=== PATIENT | male | born 1975 | race Caucasian/White ===

== ENCOUNTER → 2019-04-04 | Outpatient (CLI) | payer BC ==
--- NOTE | 2019-04-04 15:13 | US ---
EXAMINATION TYPE: US kidneys/renal and bladder DATE OF EXAM: 04/04/2019 COMPARISON: NONE CLINICAL HISTORY: N23 Renal Colic. Right side pain, No hx of renal stones EXAM MEASUREMENTS: Right Kidney: 11.6 x 7.0 x 7.6 cm Left Kidney: 12.9 x 5.9 x 6.2 cm Right Kidney: Mild hydronephrosis visualized. No prominent stones or masses. Left Kidney: No hydronephrosis or masses seen Bladder: Mildly distended Right Jets seen No nephrolithiasis is seen. No masses are identified. The urinary bladder is anechoic. Bilateral u reteral jets are seen. IMPRESSION: Mild right-sided hydronephrosis. No obstructing calculus is seen sonographically.
== END | disposition home or self-care (01) ==
LOC: RADUSWWP 14:19
PROVIDERS: ATTEND Family Medicine
DX: N23 Unspecified renal colic (principal); N13.30 Unspecified hydronephrosis
CPT/HCPCS: 76770

== ENCOUNTER → 2019-04-13 | Outpatient (CLI) | payer BC ==
--- NOTE | 2019-04-13 09:53 | US ---
EXAMINATION TYPE: US kidneys/renal and bladder DATE OF EXAM: 04/13/2019 COMPARISON: US 04/04/19 CLINICAL HISTORY: N13.30 HYDRONEPHROSIS. Pt feels that a stone has passes. Recheck hydronephrosis. EXAM MEASUREMENTS: Right Kidney: 12.3 x 6.6 x 6.5 cm Left Kidney: 12.7 x 6.4 x 6.0 cm Post Void Residual Volume: 11.2 mL Right Kidney: No hydronephrosis or masses seen Left Kidney: No hydronephrosis or masses seen Bladder: wnl Bilateral Jets seen: Yes Normal Post Void Residual: Yes There is no evidence for hydronephrosis at this point in time. No nephrolithiasis is seen. No laureano s are identified. The urinary bladder is anechoic. Bilateral ureteral jets are seen. Kidney shows n ormal cortical medullary differentiation. IMPRESSION: Renal sizes as described. Improvement in right-sided hydronephrosis compared to prior exam.
== END | disposition home or self-care (01) ==
LOC: RADUSMAIN 07:54
PROVIDERS: ATTEND Family Medicine
DX: N13.30 Unspecified hydronephrosis (principal)
CPT/HCPCS: 76770

== ENCOUNTER 2020-01-22 10:31 | Emergency (ER) | payer BC ==
[2020-01-22 10:37] VITALS: PULSE 86; RESP 16; TEMP 98.3
[2020-01-22] MEDS ORDERED: SODIUM CHLORIDE 0.9% 1,000 ML IV STA (10:49)
[2020-01-22] MEDS ORDERED: HYDROmorphone 0.5 MG/0.5 ML SYRINGE IVP STA (10:49)
--- NOTE | 2020-01-22 10:55 | ED ---
General Adult HPI - General Chief complaint: Abdominal Pain Stated complaint: ABD PAIN Time Seen by Provider: 01/22/20 10:35 Source: patient, EMS, RN notes reviewed, old records reviewed Mode of arrival: EMS Limitations: no limitations - History of Present Illness Initial comments: 44-year-old male presenting for evaluation of left-sided abdominal pain. Pain began 2 days ago, was intermittent in nature similar to previous episodes of renal colic with known history of kidney stones. He states that this morning the pain became more severe and constant. He states he had a bowel movement this morning. He had several episodes of vomiting secondary to pain. Denies upper abdominal pain. No chest pain. No fever. No cough or dyspnea. History of hypertension. - Related Data Previous Rx's Medication Instructions Recorded Acetaminophen-Codeine 300-30mg 1 tab PO Q6H PRN #20 tablet 07/16/14 [Tylenol #3] Ibuprofen [Motrin] 600 mg PO Q8HR PRN #30 tab 07/16/14 Penicillin V Potassium [Pen Vee K] 500 mg PO QID #40 tab 07/16/14 HYDROcodone/APAP 5-325MG [Braddock 1 tab PO Q6HR PRN #12 tab 01/22/20 5-325] Tamsulosin [Flomax] 0.4 mg PO DAILY #30 cap 01/22/20 Allergies Allergy/AdvReac Type Severity Reaction Status Date / Time No Known Allergies Allergy Verified 07/16/14 12:34 Review of Systems ROS Statement: Those systems with pertinent positive or pertinent negative responses have been documented in the HPI. ROS Other: All systems not noted in ROS Statement are negative. Past Medical History Past Medical History: No Reported History History of Any Multi-Drug Resistant Organisms: None Reported Past Surgical History: No Surgical Hx Reported Past Anesthesia/Blood Transfusion Reactions: No Reported Reaction Past Psychological History: No Psychological Hx Reported Smoking Status: Current every day smoker Past Alcohol Use History: None Reported, Rare Past Drug Use History: None Reported General Exam Limitations: no limitations General appearance: alert, in no apparent distress Head exam: Present: atraumatic, normocephalic Eye exam: Present: normal appearance, PERRL ENT exam: Present: normal exam Neck exam: Present: normal inspection. Absent: tenderness, meningismus Respiratory exam: Present: normal lung sounds bilaterally. Absent: respiratory distress, wheezes Cardiovascular Exam: Present: regular rate, normal rhythm GI/Abdominal exam: Present: soft, distended, tenderness Extremities exam: Present: normal inspection, normal capillary refill. Absent: pedal edema Neurological exam: Present: alert, oriented X3, CN II-XII intact. Absent: motor sensory deficit Psychiatric exam: Present: normal affect, normal mood Skin exam: Present: warm, dry, intact. Absent: cyanosis, diaphoretic Course Vital Signs 01/22/20 10:32 Temperature 98.3 F Pulse Rate 86 Respiratory 16 Rate Blood Pressure 158/78 O2 Sat by Pulse 99 Oximetry Medical Decision Making - Medical Decision Making 44 -year-old male presenting with left flank pain and left lower abdominal pain. Patient has history of renal colic. Workup initiated emergency partner, patient has mild leukocytosis 11.0, lactic acid 2.5. Stable hemoglobin. He has creatinine 1.42 with a baseline of 1.2. He has a 4 mm stone with left-sided hydrocele and some perinephric fat stranding. He does have an enlarged prostate and some enlarged lymph nodes as well as hepatomegaly all incidentally found on CT. He will require outpatient follow-up particularly on the enlarged prostate and lymph nodes. Urinalysis showed 4 rbc's and 4+ glucose. I discussed case with Dr. Nunes who is able to evaluate this patient on an outpatient basis if his pain is controlled. After second dose of Dilaudid the patient is feeling better. He is given a urine strainer. He will be prescribed pain medication, Flomax. He will have close outpatient follow-up with urology and will return with worsening or changing symptoms. - Lab Data Result diagrams: 01/22/20 10:55 01/22/20 10:55 Lab Results 01/22/20 01/22/20 01/22/20 Range/Units 10:55 10:55 10:55 WBC 11.0 H (3.8-10.6) k/uL RBC 4.91 (4.30-5.90) m/uL Hgb 13.8 (13.0-17.5) gm/dL Hct 42.8 (39.0-53.0) % MCV 87.1 (80.0-100.0) fL MCH 28.1 (25.0-35.0) pg MCHC 32.3 (31.0-37.0) g/dL RDW 13.9 (11.5-15.5) % Plt Count 271 (150-450) k/uL Neutrophils % 79 % Lymphocytes % 13 % Monocytes % 4 % Eosinophils % 1 % Basophils % 1 % Neutrophils # 8.7 H (1.3-7.7) k/uL Lymphocytes # 1.5 (1.0-4.8) k/uL Monocytes # 0.5 (0-1.0) k/uL Eosinophils # 0.1 (0-0.7) k/uL Basophils # 0.1 (0-0.2) k/uL PT 10.0 (9.0-12.0) sec INR 1.0 (<1.2) APTT 23.4 (22.0-30.0) sec Sodium 136 L (137-145) mmol/L Potassium 4.9 (3.5-5.1) mmol/L Chloride 105 (98-107) mmol/L Carbon Dioxide 19 L (22-30) mmol/L Anion Gap 12 mmol/L BUN 17 (9-20) mg/dL Creatinine 1.42 H (0.66-1.25) mg/dL Est GFR (CKD-EPI)AfAm 69 (>60 ml/min/1.73 sqM) Est GFR (CKD-EPI)NonAf 60 (>60 ml/min/1.73 sqM) Glucose 189 H (74-99) mg/dL Plasma Lactic Acid Cleve (0.7-2.0) mmol/L Calcium 9.1 (8.4-10.2) mg/dL Total Bilirubin 0.3 (0.2-1.3) mg/dL AST 35 (17-59) U/L ALT 58 H (4-49) U/L Alkaline Phosphatase 87 (38-126) U/L Total Protein 7.4 (6.3-8.2) g/dL Albumin 4.2 (3.5-5.0) g/dL Amylase 64 (30-110) U/L Lipase 169 (23-300) U/L Urine Color Urine Appearance (Clear) Urine pH (5.0-8.0) Ur Specific [place] (1.001-1.035) Urine Protein (Negative) Urine Glucose (UA) (Negative) Urine Ketones (Negative) Urine Blood (Negative) Urine Nitrite (Negative) Urine Bilirubin (Negative) Urine Urobilinogen (<2.0) mg/dL Ur Leukocyte Esterase (Negative) Urine RBC (0-5) /hpf Urine WBC (0-5) /hpf Urine Mucus (None) /hpf Blood Type Blood Type Confirm Blood Type Recheck Bld Type Recheck Status Antibody Screen Spec Expiration Date 01/22/20 01/22/20 01/22/20 Range/Units 11:07 11:12 11:12 WBC (3.8-10.6) k/uL RBC (4.30-5.90) m/uL Hgb (13.0-17.5) gm/dL Hct (39.0-53.0) % MCV (80.0-100.0) fL MCH (25.0-35.0) pg MCHC (31.0-37.0) g/dL RDW (11.5-15.5) % Plt Count (150-450) k/uL Neutrophils % % Lymphocytes % % Monocytes % % Eosinophils % % Basophils % % Neutrophils # (1.3-7.7) k/uL Lymphocytes # (1.0-4.8) k/uL Monocytes # (0-1.0) k/uL Eosinophils # (0-0.7) k/uL Basophils # (0-0.2) k/uL PT (9.0-12.0) sec INR (<1.2) APTT (22.0-30.0) sec Sodium (137-145) mmol/L Potassium (3.5-5.1) mmol/L Chloride (98-107) mmol/L Carbon Dioxide (22-30) mmol/L Anion Gap mmol/L BUN (9-20) mg/dL Creatinine (0.66-1.25) mg/dL Est GFR (CKD-EPI)AfAm (>60 ml/min/1.73 sqM) Est GFR (CKD-EPI)NonAf (>60 ml/min/1.73 sqM) Glucose (74-99) mg/dL Plasma Lactic Acid Cleve 2.5 H* (0.7-2.0) mmol/L Calcium (8.4-10.2) mg/dL Total Bilirubin (0.2-1.3) mg/dL AST (17-59) U/L ALT (4-49) U/L Alkaline Phosphatase (38-126) U/L Total Protein (6.3-8.2) g/dL Albumin (3.5-5.0) g/dL Amylase (30-110) U/L Lipase (23-300) U/L Urine Color Urine Appearance (Clear) Urine pH (5.0-8.0) Ur Specific [place] (1.001-1.035) Urine Protein (Negative) Urine Glucose (UA) (Negative) Urine Ketones (Negative) Urine Blood (Negative) Urine Nitrite (Negative) Urine Bilirubin (Negative) Urine Urobilinogen (<2.0) mg/dL Ur Leukocyte Esterase (Negative) Urine RBC (0-5) /hpf Urine WBC (0-5) /hpf Urine Mucus (None) /hpf Blood Type B Positive Blood Type Confirm B Positive Blood Type Recheck No Previous Record Bld Type Recheck Status CABO Indicated Antibody Screen NEGATIVE Spec Expiration Date 01/25/2020 - 231101/22/20 Range/Units 12:21 WBC (3.8-10.6) k/uL RBC (4.30-5.90) m/uL Hgb (13.0-17.5) gm/dL Hct (39.0-53.0) % MCV (80.0-100.0) fL MCH (25.0-35.0) pg MCHC (31.0-37.0) g/dL RDW (11.5-15.5) % Plt Count (150-450) k/uL Neutrophils % % Lymphocytes % % Monocytes % % Eosinophils % % Basophils % % Neutrophils # (1.3-7.7) k/uL Lymphocytes # (1.0-4.8) k/uL Monocytes # (0-1.0) k/uL Eosinophils # (0-0.7) k/uL Basophils # (0-0.2) k/uL PT (9.0-12.0) sec INR (<1.2) APTT (22.0-30.0) sec Sodium (137-145) mmol/L Potassium (3.5-5.1) mmol/L Chloride (98-107) mmol/L Carbon Dioxide (22-30) mmol/L Anion Gap mmol/L BUN (9-20) mg/dL Creatinine (0.66-1.25) mg/dL Est GFR (CKD-EPI)AfAm (>60 ml/min/1.73 sqM) Est GFR (CKD-EPI)NonAf (>60 ml/min/1.73 sqM) Glucose (74-99) mg/dL Plasma Lactic Acid Cleve (0.7-2.0) mmol/L Calcium (8.4-10.2) mg/dL Total Bilirubin (0.2-1.3) mg/dL AST (17-59) U/L ALT (4-49) U/L Alkaline Phosphatase (38-126) U/L Total Protein (6.3-8.2) g/dL Albumin (3.5-5.0) g/dL Amylase (30-110) U/L Lipase (23-300) U/L Urine Color Yellow Urine Appearance Clear (Clear) Urine pH 5.5 (5.0-8.0) Ur Specific [place] 1.029 (1.001-1.035) Urine Protein 1+ H (Negative) Urine Glucose (UA) 4+ H (Negative) Urine Ketones Negative (Negative) Urine Blood Small H (Negative) Urine Nitrite Negative (Negative) Urine Bilirubin Negative (Negative) Urine Urobilinogen <2.0 (<2.0) mg/dL Ur Leukocyte Esterase Negative (Negative) Urine RBC 4 (0-5) /hpf Urine WBC 1 (0-5) /hpf Urine Mucus Rare H (None) /hpf Blood Type Blood Type Confirm Blood Type Recheck Bld Type Recheck Status Antibody Screen Spec Expiration Date Disposition Clinical Impression: Calculus of kidney, Renal colic on left side Disposition: HOME SELF-CARE Instructions (If sedation given, give patient instructions): Abdominal Pain (ED), Kidney Stones (ED), Flank Pain (ED), Enlarged Prostate (BPH) (ED) Additional Instructions: Please follow up with urology regarding kidney stone as well as enlarged prostate and enlarged lymph nodes. Please return with worsening or changing s ymptoms. Prescriptions: Tamsulosin [Flomax] 0.4 mg PO DAILY #30 cap HYDROcodone/APAP 5-325MG [Braddock 5-325] 1 tab PO Q6HR PRN #12 tab PRN Reason: Pain Is patient prescribed a controlled substance at d/c from ED?: No Referrals: Laurent Gurrola MD [Primary Care Provider] - 1-2 days Time of Disposition: 13:40
[2020-01-22 11:09] LABS: Basophils # (A) 0.1 k/uL (0-0.2); Basophils % (A) 1 %; Eosinophils # (A) 0.1 k/uL (0-0.7); Eosinophils % (A) 1 %; HCT 42.8 % (39.0-53.0); HGB 13.8 gm/dL (13.0-17.5); Lymphocytes # (A) 1.5 k/uL (1.0-4.8); Lymphocytes % (A) 13 %; MCH 28.1 pg (25.0-35.0); MCHC 32.3 g/dL (31.0-37.0); MCV 87.1 fL (80.0-100.0); Mean Platelet Volume 8.3; Monocytes # (A) 0.5 k/uL (0-1.0); Monocytes % (A) 4 %; Neutrophils # (A) 8.7 k/uL (1.3-7.7); Neutrophils % (A) 79 %; Platelet Count 271 k/uL (150-450); RBC 4.91 m/uL (4.30-5.90); RDW 13.9 % (11.5-15.5)
[2020-01-22 11:17] LABS: Albumin 4.2 g/dL (3.5-5.0); Calcium 9.1 mg/dL (8.4-10.2); Potassium 4.9 mmol/L (3.5-5.1); Total Bilirubin 0.3 mg/dL (0.2-1.3); Total Protein 7.4 g/dL (6.3-8.2)
[2020-01-22 11:19] LABS: Partial Thromboplastin Time 23.4 sec (22.0-30.0)
--- NOTE | 2020-01-22 11:39 | XR ---
EXAMINATION TYPE: XR KUB DATE OF EXAM: 01/22/2020 Comparison: None Clinical History: 44-year-old male abdominal pain Findings: Lung bases are clear. No evidence for free intraperitoneal air. No dilated small bowel or air-fluid levels. Mild stool burden on the right. Very faint 3 mm density in the left side of the pelvis. No other suspicious calcifications seen. Impression: 1. Faint 3 mm density left side of the pelvis corresponds to the distal left ureteral calculus demons trated on CT today. 2. Nonobstructive bowel gas pattern. No free air.
--- NOTE | 2020-01-22 11:45 | CT ---
EXAMINATION TYPE: CT abdomen pelvis wo con DATE OF EXAM: 01/22/2020 COMPARISON: Radiograph same day HISTORY: 44-year-old male Lt flank pain, LLQ pain CT DLP: 1879.8 mGycm. Automated exposure control for dose reduction was used. TECHNIQUE: Contiguous axial scanning of the abdomen and pelvis without IV contrast. Coronal and sagit catie reconstructions performed. FINDINGS: Heart normal size without pericardial effusion. Lung bases clear without pleural effusion. Liver enla rged at 20.1 cm with diffuse low-attenuation. Prominent luis hepatic lymph nodes measuring up to 1.3 cm likely reactive/post inflammatory. Noncontrast appearance of the gallbladder, adrenal glands, right kidney, spleen, pancreas show no velia ss abnormality. There is a 4 mm calcification at the distal left ureter with mild left-sided hydronephrosis and perin ephric edema. No dilated small bowel, free fluid, or free air. Mild stool burden on the right. No pericolonic inflammatory change. Mild circumferential bladder wall thickening. Prostate gland measures 4.7 cm wide. No abnormal fluid collection in the pelvis. Some prominent external iliac chain lymph nodes measure up to 1.1 cm on the left and 1.2 cm on the right. These may also be reactive/post inflammatory. Bones: Mild degenerative change at the hips. Degenerative disc disease L4-L5. IMPRESSION: 1. A 4 mm calculus at the distal left ureter with mild obstructive uropathy. 2. Left-sided perinephric edema may be reactive to the obstruction. Correlate to exclude underlying infection. 3. Muscular compartment or lateral wall thickening. Reflect chronic bladder wall hypertrophy or cyst itis. 4. Prostate gland is mildly enlarged at 4.7 cm wide. Given some mildly enlarged external iliac chain lymph nodes (possibly reactive/post inflammatory) measuring up to 1.2 cm, correlate with PSA values. A three-month follow-up CT can assess for stability/resolution. 5. Hepatomegaly (20.1 cm) with moderate to severe hepatic steatosis.
[2020-01-22] MEDS ORDERED: HYDROmorphone 1 MG/ML 1 ML SYRINGE IVP STA (12:13)
[2020-01-22] MEDS ORDERED: SODIUM CHLORIDE 0.9% 500 ML 500 ML IV ONE (12:13)
[2020-01-22 12:36] LABS: Appearance,Urine Clear (Clear); Bilirubin,Urine Negative (Negative); Blood,Urine Small (Negative); Color,Urine Yellow; Glucose,Urine (UA) 4+ (Negative); Ketones,Urine Negative (Negative); Leukocyte Esterase,Urine Negative (Negative); Mucus,Urine Rare /hpf; Nitrite,Urine Negative (Negative); PH, Urine 5.5 (5.0-8.0); Protein,Urine 1+ (Negative); RBC,Urine 4 /hpf (0-5); Specific Gravity,Urine 1.029 (1.001-1.035); Urobilinogen,Urine <2.0 mg/dL (<2.0); WBC,Urine 1 /hpf (0-5)
[2020-01-22 13:58] VITALS: BP 160/78
== END 2020-01-22 13:57 | disposition home or self-care (01) ==
LOC: EC 10:31
DX: N20.2 Calculus of kidney with calculus of ureter (principal); N23 Unspecified renal colic; N40.1 Benign prostatic hyperplasia with lower urinary tract symptoms; I10 Essential (primary) hypertension; F17.200 Nicotine dependence, unspecified, uncomplicated
CPT/HCPCS: 36415; 86900; 86901; 80053; 82150; 83605; 83690; 85025; 85610; 85730; 86850; 81001; 74018; 74176; 99285; 96374; 96376; 96361; J1170 ×2

== ENCOUNTER 2020-09-04 10:04 | Day surgery (SDC) | payer BC, OTHER ==
[2020-09-03 11:58] VITALS: BMI 43.7
[~2020-09-04 10:04] MED LIST: Pre Op ABX Message 1 EACH MISC MISCELLANE ONE
[2020-09-04 11:12] VITALS: TEMP 97.5
[2020-09-04] MEDS ORDERED: ONDANSETRON 4 MG/2 ML VIAL ONE (11:24)
[2020-09-04] MEDS ORDERED: ONDANSETRON 4 MG/2 ML VIAL IVP ONE (11:30)
[2020-09-04] MEDS ORDERED: LACTATED RINGERS 1,000 ML IV ONE (11:31)
[2020-09-04] MEDS ORDERED: DEXAMETHASONE SOD PHOSPHATE 4 MG/ML 1 ML VIAL IV ONE (11:31)
[2020-09-04 11:42] LABS: Glucose,Whole Blood 116 mg/dL (75-99)
[2020-09-04] MEDS ORDERED: PROPOFOL 10 MG/ML 20 ML VIAL IV ONE (12:31)
[2020-09-04] MEDS ORDERED: LIDOCAINE 1% INJ 10MG/ML (20 ML MDV) ONE (12:31)
[2020-09-04] MEDS ORDERED: fentaNYL (PF) 50 MCG/ML 2 ML AMP ONE (12:31)
[2020-09-04] MEDS ORDERED: MIDAZOLAM 2 MG/2 ML VIAL ONE (12:31)
[2020-09-04] MEDS ORDERED: LIDOCAINE 1%-EPI 1:100,000 20 ML VIAL SQ ONE ×2 (12:50)
[2020-09-04] MEDS ORDERED: BACITRACIN ZINC 500 UNIT/GM OINT 28.4 GM TUBE TOPICAL ONE (12:55)
--- NOTE | 2020-09-04 13:27 | P.OP ---
Date of Procedure: 09/04/20 Preoperative Diagnosis: Sebaceous cyst Postoperative Diagnosis: Same Anesthesia: KAYA Surgeon: Uzair Doll Estimated Blood Loss (ml): 5 Condition: stable Disposition: PACU Description of Procedure: Patient brought operative suite remained supine position underwent sedation per department of anesthesia was placed in the left lateral decubitus position timeout performed correct patient correct procedure correct site was verified. Prepped and draped in usual sterile fashion local anesthetic used to anesthetize is since skin and subcu tissues tissues directly over the cyst cyst was removed with an elliptical incision approximately 4 cm long. Wound was irrigated hemostasis was achieved. Wound was closed with 2-0 nylon interrupted sutures. Sterile dressing was applied patient tolerated procedure well no apparent comp patient Plan - Discharge Summary Discharge Rx Participant: Yes New Discharge Prescriptions: No Action Januvia(Dose Unknown) 1 tab PO DAILY Escitalopram [Lexapro] 10 mg PO DAILY amLODIPine BESYLATE 1 tab PO DAILY Lisinopril-Hctz 10-12.5 mg [Zestoretic 10-12.5] 1 tab PO DAILY Empagliflozin [Jardiance] 1 tab PO DAILY Discharge Medication List Januvia(Dose Unknown) 1 tab PO DAILY 09/03/20 [History] Empagliflozin [Jardiance] 1 tab PO DAILY 09/04/20 [History] Escitalopram [Lexapro] 10 mg PO DAILY 09/04/20 [History] Lisinopril-Hctz 10-12.5 mg [Zestoretic 10-12.5] 1 tab PO DAILY 09/04/20 [Histor y] amLODIPine BESYLATE 1 tab PO DAILY 09/04/20 [History]
[2020-09-04 13:39] VITALS: BP 105/65; PULSE 71; RESP 17
--- NOTE | 2020-09-08 07:49 | CDI ---
Date: 09.08.2020 CDS/Tube Drawing Supervisor Name: Estrellita Hollis Phone: If any questions, call Zaira Garzon Outside Plant Technician at [phone] Patient Name: Jaylen Teresa Admit Date 09.04.20 Discharge Date: 09.04.20 ATTENTION: The [facility] Coding Staff appreciate your assistance in clarifying documentation. Please respond to the clarification below the line at the bottom and electronically sign. The [facility] Coding staff will review the response and follow-up if needed. Please note: Queries are made part of the Legal Health Record. If you have any questions, please contact the Outside Plant Technician. Dear Dr. Doll In order to code to the greatest specificity and for the greatest reimbursement I need the following information: Please specify what size the cyst was that you removed. __0.5 cm or less __0.6 to 1.0 cm __1.1 to 2.0 cm __2.1 to 3.0 cm _x_3.1 to 4.0 cm __over 4.0 cm Thank you for your kind consideration. MTDD
== END 2020-09-04 14:01 | disposition home or self-care (01) ==
LOC: OR 10:04
PROVIDERS: ATTEND Student in an Organized Health Care Education/Training Program
DX: L72.0 Epidermal cyst (principal); L90.5 Scar conditions and fibrosis of skin; L08.89 Other specified local infections of the skin and subcutaneous tissue; I10 Essential (primary) hypertension; G47.33 Obstructive sleep apnea (adult) (pediatric); F17.200 Nicotine dependence, unspecified, uncomplicated; E11.9 Type 2 diabetes mellitus without complications; Z97.2 Presence of dental prosthetic device (complete) (partial); Z79.899 Other long term (current) drug therapy; Z79.84 Long term (current) use of oral hypoglycemic drugs
CPT/HCPCS: 11404; 88304; J2250; J1100; J2405; J2001; J3010; J2704

== ENCOUNTER → 2020-09-09 | Outpatient (CLI) | payer OTHER | END | disposition home or self-care (01) | LOC: CPPFTMAIN 15:48 | PROVIDERS: ATTEND Family Medicine | DX: J44.9 Chronic obstructive pulmonary disease, unspecified (principal) | CPT/HCPCS: 94060; 94726; 94729 ==